=== PATIENT | male | born 1970 | race Caucasian/White ===

== ENCOUNTER 2016-08-01 03:20 | Emergency (ER) | payer OTHER ==
[~2016-08-01] VITALS: Ht 177.8 cm; Wt 88.5 kg
[~2016-08-01 03:20] MED LIST: BENADRYL25 MG PO; PEPCID20 MG PO; PREDNISONE 10 M10 MG PO; PREDNISONE 20 M20 MG PO; VISTARIL50 MG PO
[2016-08-01] MEDS ORDERED: PREDNISONE 20 M20 MG PO (03:56)
[2016-08-01] MEDS ORDERED: BENADRYL25 MG PO (03:56)
[2016-08-01] MEDS ORDERED: HYDROXYZINE HCL25 M1 PO (03:56)
[2016-08-01 04:10] VITALS: BP 122/77
== END 2016-08-01 04:10 | disposition home or self-care (01) ==
LOC: ER 03:20
DX: L50.9 Urticaria, unspecified (principal); Z98.890 Other specified postprocedural states